=== PATIENT | female | born 1975 | race Caucasian/White ===

== ENCOUNTER 2018-10-25 17:08 | Observation (INO) ==
[2018-10-25] MEDS ORDERED: ASPIRIN PO ONE (17:29)
[2018-10-25] MEDS ORDERED: NITROGLYCERIN TOP ONE (17:30)
--- NOTE | 2018-10-25 17:43 | Diag Imaging Result Doc PS360 ---
EXAM: CHEST-2 VIEWS 10/25/2018 HISTORY: sob TECHNIQUE: PA and lateral chest COMMENT: There are sternotomy wires. There is no evidence of acute cardiac or pulmonary disease. Compared to the previous study of 08/25/2017 there has been no significant change. IMPRESSION: No evidence of acute disease. Electronically signed by Mani Mccray 10/25/2018 5:41 PM
[2018-10-25 17:48] LABS: BASO# 0.02 X1000 (0.0-0.2); BASO% 0.2 % (0.0-0.8); EOS# 0.14 X1000 (0.0-0.7); EOS% 1.3 % (0.0-10.0); HEMATOCRIT 41.7 % (37.0-47.0); HEMOGLOBIN 13.2 g/dL (12.0-16.0); IMM GRAN# 0.06 X1000 (0.0-0.04); IMM GRAN% 0.6 % (0.0-0.5); LYMPH# 1.26 X1000 (1.2-3.4); MCH 28.1 PG (27-31); MCHC 31.7 g/dL (33-37); MCV 88.7 FL (81-99); MONO# 0.39 X1000 (0.11-0.59); MONO% 3.7 % (1.7-9.3); MPV 11.9 FL (7.4-10.4); NEUT# 8.61 X1000 (1.4-6.5); NEUT% 82.2 % (42.2-75.2); PLT 234 X1000 (130-400); RDW 14.7 % (11.5-14.5); WBC 10.48 X1000 (4.8-10.8)
[2018-10-25 17:54] LABS: INR 0.98; PROTIME 13.5 Seconds (11.0-16.0)
[2018-10-25 17:55] LABS: PTT 28.7 Seconds (22.3-41.8)
[2018-10-25 17:56] LABS: AGAP 10; ALBUMIN 3.4 g/dL (3.5-5.0); ALKALINE PHOSPHATASE 96 U/L (32-104); BUN 7 mg/dL (8-22); CALCIUM 8.5 mg/dL (8.8-10.2); CHLORIDE 99 mmol/L (98-107); CK PROFILE 90 U/L (24-173); COSMO 280; CREATININE 0.8 mg/dL (0.5-0.9); ESTIMATED GFR > 60; GLUCOSE 173 mg/dL (70-104); GOT 16 U/L (10-30); GPT 14 U/L (10-36); POTASSIUM 3.9 mmol/L (3.5-5.1); SODIUM 139 mmol/L (136-145); TCO2 30 mmol/L (25-35); TOTAL PROTEIN 6.4 g/dL (6.3-8.3)
--- NOTE | 2018-10-25 17:57 | EKG Report ---
Test Performed on : 10/25/2018 5:24:10 PM Test Reason : sob Blood Pressure : / mmHG Vent. Rate : 089 BPM Atrial Rate : 089 BPM P-R Int : 166 ms QRS Dur : 094 ms QT Int : 360 ms P-R-T Axes : 061 084 019 degrees QTc Int : 438 ms Normal sinus rhythm. Nonspecific ST and T wave abnormality Abnormal ECG No previous ECGs available Unconfirmed Result
--- NOTE | 2018-10-25 19:09 | Diag Imaging Result Doc PS360 ---
EXAM: CT ANGIOGRM PULMONARY ARTERIES 10/25/2018 HISTORY: cp, hypoxemia TECHNIQUE: This exam was performed using automated exposure control, adjustment of mA or kV according to patient size, and/or use of iterative reconstruction technique. COMMENT: 3-D MIPS were performed. There are no previous studies available for comparison. There are no filling defects in the pulmonary arteries. The left ventricle and left atrium are enlarged. The aorta is not distended and there is no evidence of dissection. There is no evidence of significant adenopathy. There is some atelectasis in both posterior costophrenic sulci particularly of the right lower lobe. There is also platelike atelectasis in the inferior lingula and right middle lobe. There is no evidence of acute bony abnormality. IMPRESSION: No evidence of pulmonary emboli. Minimal basilar atelectasis. Electronically signed by Mani Mccray 10/25/2018 7:07 PM
[2018-10-25] MEDS ORDERED: APRESOLINE IV PRN (22:35)
[2018-10-25] MEDS ORDERED: CATAPRES PO ONE (22:35)
[2018-10-25] MEDS ORDERED: FLU VACCINE IM ONE (23:05)
[2018-10-26] MEDS: TYLENOL PO PRN ×2 (06:02→22:03)
[2018-10-26] MEDS: ZOFRAN IV PRN ×2 (06:02→11:03)
[2018-10-26] MEDS ORDERED: BREO ELLIPTA 100/25 MCG INH INH ONE (09:45)
[2018-10-26] MEDS ORDERED: TYLENOL WITH CODEINE #3 PO PRN (10:21)
[2018-10-26] MEDS: COREG PO SCH ×2 (10:58→22:00)
--- NOTE | 2018-10-26 10:59 | HISTORY AND PHYSICAL ---
PRIMARY CARE PHYSICIAN: Dr. Hopkins. CHIEF COMPLAINT: Shortness of breath and chest pain that was substernal and an O2 saturation on room air of 88%. HISTORY OF PRESENTING ILLNESS: This is a 43-year-old female who presents to [facility] ER with complaints of shortness of breath, an O2 saturation on room air of 88% at home, and substernal sharp chest pain and pressure that radiated to her neck. Workup showed a blood pressure on arrival of 212/119. Cardiac enzymes x4 sets have been negative. We did a pulmonary arteriogram that showed no evidence of pulmonary emboli and minimal basilar atelectasis. So she was admitted for further evaluation and treatment. PAST MEDICAL HISTORY: Hypertension and ADHD. PAST SURGICAL HISTORY: Cholecystectomy and a hernia repair. FAMILY HISTORY: Coronary artery disease. SOCIAL HISTORY: She currently lives with family. Denied any tobacco, alcohol, or illicit drug use. ALLERGIES: Cat dander and grass pollen. HOME MEDICATIONS: We are going to hold her Adderall 30 mg daily at 7 a.m. and lunch and we will hold her tramadol 50 mg p.o. q.6 hours p.r.n. We will continue her Tylenol with Codeine #4 one p.o. q.4-6 hours p.r.n. and her Coreg 25 mg p.o. b.i.d. LABORATORY DATA: Showed a white blood cell count of 10.48, hemoglobin 13.2, hematocrit 41.7, platelets 234,000. PT and INR of 13.5 and 0.98. Sodium of 139, potassium 3.9, chloride 99, CO2 30, BUN of 7, creatinine 0.8, glucose 173. Cardiac enzymes x4 sets have been negative. ProBNP of 318. Pulmonary arteriogram showed no evidence of pulmonary emboli and minimal basilar atelectasis. Chest x-ray showed no evidence of acute disease. EKG showed normal sinus rhythm at 89. REVIEW OF SYSTEMS: She denied any fever, chills, blurred vision, dizziness. She did have some substernal chest pain, shortness of breath. Denied any abdominal pain, constipation, diarrhea, burning or hurting with urination. PHYSICAL EXAMINATION: VITAL SIGNS: On arrival, she had a temperature of 97.6 degrees, pulse 91, respirations 20, blood pressure 212/119, saturating 94% on room air. Currently blood pressure is down to 185/86. GENERAL: This is a 43-year-old female who is sitting up in the bed. She is noted to be morbidly obese, weighing 411 pounds with a BMI of 52. HEENT: Normocephalic, atraumatic. Normal ENT inspection. Oropharynx and nares are clear. Eyes: Pupils are equal, round, and reactive to light and accommodation. Extraocular movements are intact. NECK: Normal inspection. Normal range of motion. LUNGS: Clear to auscultation bilaterally with equal lung expansion and chest wall movement. HEART: With regular rate and rhythm. No murmurs, rubs, or gallops. ABDOMEN: Soft, nontender, nondistended. Bowel sounds are present x4 quadrants. MUSCULOSKELETAL: She has 5/5 strength x4 extremities. Noted some nonpitting bilateral lower extremity edema. NEUROLOGICAL: The cranial nerves 2-12 appear grossly intact. ASSESSMENT: 1. Chest pain. 2. Accelerated hypertension. 3. Shortness of breath. 4. Attention deficit hyperactive disorder, history of. PLAN: She was admitted to the medical unit. Placed on telemetry, O2 per protocol, healthy heart diet. We gave her some hydralazine 10 mg IV q.6 p.r.n. for a systolic greater than 180, diastolic greater than 100. Continue her home medications. She has essentially been ruled out for any heart with 4 negative enzymes. So, further orders after being seen by attending. Dictated by MAI Chiang for Naman Yang MD cc: MAI Chiang MD Don Beach, MD
[2018-10-26] MEDS ORDERED: FIORICET PO ONE (12:34)
[2018-10-26] MEDS: LASIX PO SCH (12:49)
--- NOTE | 2018-10-26 20:02 | EKG Report ---
Test Performed on : 10/25/2018 7:20:53 PM Test Reason : cp Blood Pressure : / mmHG Vent. Rate : 079 BPM Atrial Rate : 079 BPM P-R Int : 164 ms QRS Dur : 094 ms QT Int : 428 ms P-R-T Axes : 059 086 052 degrees QTc Int : 490 ms Normal sinus rhythm. Low voltage QRS Nonspecific ST and T wave abnormality Abnormal ECG When compared with ECG of 25-OCT-2018 17:24, (Unconfirmed) No significant change was found Unconfirmed Result
--- NOTE | 2018-10-26 20:10 | HISTORY AND PHYSICAL ---
ADDENDUM: The patient came in with chest pain and shortness of breath. She is 43, history of hypertension, reported history of CHF. She has family history of heart disease. She reports kind of crushing pain starting last night. Her workup has been negative. She has had serial cardiac enzymes which were negative. Her EKG showed normal sinus rhythm with no significant ST changes. The patient will be monitored and we will continue to see, any case she reports history of CHF. We will continue diuretics. There is no evidence of overload at least based on her laboratory data. Her proBNP was mildly elevated. She does have a generous heart but she is 411 pounds. I am pretty sure she exceeds the weight limit for stress test here. We will get an echocardiogram and possibly Cardiology opinion. If she is clear she can go home and pursue either dobutamine stress echocardiogram or outpatient stress test. This is a [id number] encounter note with Batsheva Oliver. cc: Naman Yang MD
--- NOTE | 2018-10-27 00:48 | PROVIDER DOCUMENTATION ---
This chart was entered by Hollie Ludwig Scribe, acting as scribe for Galo Covington PA. HPI-Respiratory General - General Chief Complaint: Shortness of Breath Stated Complaint: FLU SYMPTOMS Time Seen by Provider: 10/25/18 17:22 Source: patient Allergies/Adverse Reactions: Patient Allergies Allergy/AdvReac Type Severity Reaction Status Date / Time cat dander Allergy SWELLING Verified 10/25/18 23:05 grass pollen Allergy SWELLING Verified 10/25/18 23:05 Home Medications: Home Medication List Medication Instructions Recorded Confirmed Last Taken Type Dextroamphetamine/Amphetamine 30 mg PO DAILY@0700 07/20/16 10/26/18 Unknown History [Adderall 30 mg Tablet] Acetaminophen with Codeine 1 each PO Q4-6H PRN PRN 08/25/17 10/26/18 Unknown History [Tylenol with Codeine #4 Tablet] Carvedilol [Coreg] 25 mg PO BID 08/25/17 10/26/18 08/25/17 10:00 History Dextroamphetamine/Amphetamine 30 mg PO WLUNCH 08/25/17 10/26/18 Unknown History [Adderall 30 mg Tablet] Tramadol HCl 50 mg PO Q6HR PRN 08/25/17 10/26/18 Unknown History - History of Present Illness-Resp Nature of Presenting Problem: 43 y/o female presents to ED with SOB and chest pain onset this morning. Pt has O2 sat of 88% in room. Pt is alert and oriented. Quality of Pain: reports: sharp Severity in ED: reports: moderate Onset/Duration: reports: this morning Timing: reports: still present Context: reports: other Exposure: reports: unknown cause Cough Quality/Degree: reports: no cough Episode Frequency: no prior episodes Current Respiratory Medication Therapy: Initiated see nurses note Modifying Factors: improves with: nothing Associated Symptoms: reports: chest pain/soreness, shortness of breath, short of breath Similar Symptoms Previously?: No Recently seen or treated by another doctor?: No Review of Systems - Adult - REVIEW OF SYSTEMS - ADULT Constitutional: denies: chills, fever Eyes: reports: no symptoms reported Ears, Nose, Mouth & Throat: reports: no symptoms reported Cardiovascular: reports: chest pain. denies: palpitations Respiratory: reports: shortness of breath. denies: cough Gastrointestinal: denies: abdominal pain, diarrhea, nausea, vomiting Genitourinary: reports: no symptoms reported Musculoskeletal: denies: back pain, joint pain Integumentary: reports: no symptoms reported Neurological: denies: dizziness/vertigo, seizure Psychiatric: reports: no symptoms reported Endocrine: reports: no symptoms reported Hematologic/Lymphatic: reports: no symptoms reported Allergic/Immunologic: reports: no symptoms reported All Other Systems: Reviewed and Negative Past History - Adult - PAST MEDICAL HISTORY-ADULT Review of Records: reports: Old Records Reviewed, Nursing Assessment Review, Medications Reviewed Major Childhood Illnesses: reports: denies history Cardiovascular: reports: denies history, HTN Respiratory: reports: denies history Gastrointestinal: reports: denies history Obstetrical/Gynecological: reports: denies history Genitourinary: reports: denies history Musculoskeletal: reports: denies history Neurological: reports: denies history Psychiatric: reports: other (ADHD) Endocrine/Immune: reports: denies history Other Conditions: reports: denies history - PRIOR SURGERIES/PROCEDURES Surgical/Procedure History: reports: cholecystectomy, hernia repair - IMMUNIZATION STATUS Childhood Immunizations: See Nurse Assessment Flu Vaccine: See Nurse Assessment - FAMILY HISTORY Family History: reviewed, not pertinent - SOCIAL HISTORY Smoking: non-smoker Substance Use: none/never Alcohol Use Frequency: never Living Situation: family Physical Exam-General - PHYSICAL EXAM-ADULT Initial Vital Signs Reviewed: Yes - CONSTITUTIONAL General Appearance: appears well, alert, no apparent distress - EYES Eyes: PERRL/EOMI, pink conjunctivae - HEAD, EARS, NOSE, MOUTH & THROAT HENMT: normocephalic/atraumatic, moist mucous membranes, normal ENT inspection - NECK Neck: non-tender, full range of motion - RESPIRATORY Respiratory: chest non-tender, lungs clear, normal breath sounds - CARDIOVASCULAR Cardiovascular: normal peripheral pulses, regular rate, rhythm - GASTROINTESTINAL (ABDOMEN) Abdominal Exam: normal bowel sounds, non tender, soft - MUSCULOSKELETAL Back Exam: normal inspection, no CVA tenderness Extremity: normal range of motion, non-tender, normal gait, tenderness ( nonpitting bilateral lower extremity edema) - SKIN Integumentary: normal color, warm/dry - NEUROLOGIC Neurologic: grossly normal - PSYCHIATRIC Psych/Mental Status: normal mood/affect, normal thought content, normal thought process Progress - PLAN OF CARE/RESULTS Progress/Plan/Lab Results: HEART SCORE OF 3. Result Diagrams: 10/25/18 17:30 10/25/18 17:30 - EKG 1 Time of EKG reading by physician:: 17:24 EKG Read and Signed by:: Jose Bonner EKG Interpretation (*Must complete 3 of following elements*): Abnormal Rate: 89 Rhythm: NSR [place]: normal QRS: normal VT Interval: normal ST Wave: non-specific ST changes - XRAY 1 XRAY Study: Chest Impression: Normal (COMMENT: There are sternotomy wires. There is no evidence of acute cardiac or pulmonary disease. Compared to the previous study of 2016 there has been no significant change. IMPRESSION: No evidence of acute disease. Electronically signed by Mani Mccray 10/25/2018 5:41 PM) - CT/MRI 1 Impression: See EMR Report (EXAM: CT ANGIOGRM PULMONARY ARTERIES 10/25/2018 HISTORY: cp, hypoxemia TECHNIQUE: This exam was performed using automated exposure control, adjustment of mA or kV according to patient size, and/or use of iterative reconstruction technique. COMMENT: 3-D MIPS were performed. There are no previous studies available for comparison. There are no filling defects in the pulmonary arteries. The left ventricle and left atrium are enlarged. The aorta is not distended and there is no evidence of dissection. There is no evidence of significant adenopathy. There is some atelectasis in both posterior costophrenic sulci particularly of the right lower lobe. There is also platelike atelectasis in the inferior lingula and right middle lobe. There is no evidence of acute bony abnormality. IMPRESSION: No evidence of pulmonary emboli. Minimal basilar atelectasis.) - CONSULTS/PCP/HOSPITALIST Notification #1 *Consult/PCP/Hospitalist*: Dr. Yang Time Discussed: 20:30 Consult Disposition: Admit Departure - Departure Date of Disposition Decision: 10/25/18 Time of Disposition Decision: 20:31 DIAGNOSIS: Hypoxemia, Family history of early CAD Chest pain Qualifiers: Chest pain type: unspecified Qualified Code(s): R07.9 - Chest pain, unspecified Disposition: ADMITTED INPATIENT 09 Certified Medical Emergency: Emergent Condition: Stable - Critical Care Note This patient required my direct & personal management of CC.: No Attestation - Physician/ HERMANN Attestation Patient care was provided by Advanced Practice Provider:: Yes Advanced Practice Provider:: Galo Covington Advanced Practice Provider documentation review:: The Mid-level provider documentation, treatment plan and medical decision making was reviewed by the physician who agrees with all treatment and medical decision making by the MLP. The physician spent face to face time with patient:: No Advanced Practice Provider documentation review:: Supervising physician onsite and consulted in the evaluation and care of this patient. The physician did not have a face to face encounter with the patient. This chart was documented by the indicated scribe, (Hollie Ludwig Scribe) and accurately reflects the services I performed and decisions made by , Galo Covington, PA, as attested by the provider's signature.
[2018-10-27 06:43] LABS: BASO# 0.02 X1000 (0.0-0.2); BASO% 0.2 % (0.0-0.8); EOS# 0.18 X1000 (0.0-0.7); EOS% 1.8 % (0.0-10.0); HEMATOCRIT 41.1 % (37.0-47.0); HEMOGLOBIN 12.1 g/dL (12.0-16.0); LYMPH# 1.23 X1000 (1.2-3.4); LYMPH% 12.3 % (20.5-51.1); MCH 27.3 PG (27-31); MCHC 29.4 g/dL (33-37); MCV 92.8 FL (81-99); MONO# 0.55 X1000 (0.11-0.59); MONO% 5.5 % (1.7-9.3); MPV 12.3 FL (7.4-10.4); NEUT# 7.91 X1000 (1.4-6.5); NEUT% 79.2 % (42.2-75.2); PLT 225 X1000 (130-400); RBC 4.43 XMIL (4.2-5.4); RDW 15.2 % (11.5-14.5); WBC 9.99 X1000 (4.8-10.8)
[2018-10-27 06:57] LABS: AGAP 8; BUN 11 mg/dL (8-22); CALCIUM 8.5 mg/dL (8.8-10.2); CHLORIDE 97 mmol/L (98-107); COSMO 276; CREATININE 0.7 mg/dL (0.5-0.9); ESTIMATED GFR > 60; GLUCOSE 148 mg/dL (70-104); POTASSIUM 4.8 mmol/L (3.5-5.1); SODIUM 137 mmol/L (136-145); TCO2 32 mmol/L (25-35)
[2018-10-27] MEDS ORDERED: PRILOSEC PO SCH (07:00)
[2018-10-27] MEDS: COREG PO SCH (08:53)
[2018-10-27] MEDS: TYLENOL PO PRN (08:53)
[2018-10-27] MEDS: LASIX PO SCH (08:54)
[2018-10-27] MEDS ORDERED: ASPIRIN EC PO SCH (09:00)
[2018-10-27 11:48] VITALS: BP 129/74
--- NOTE | 2018-10-27 15:20 | ECHO REPORT ---
ORDER DATE: 10/27/2018 INDICATION: Chest pain, shortness of breath, hypertension. FINDINGS: 1. This study is extremely limited secondary to the patient's body habitus. She weighs 411 pounds. I do not see any obvious pericardial effusion. 2. LV systolic function with Definity echo contrast appears to be normal and at least 55%. The remainder of the study including 2 dimensional evaluation of the valves and Doppler evaluation of the valves is limited and unable to be performed. cc: MD Naman Lnaier MD
--- NOTE | 2018-10-28 01:38 | PROGRESS NOTE ---
DATE: 10/27/2018 SUBJECTIVE: The patient was seen and examined by myself. Full note dictated and discussed with the nurse practitioner. The patient's chest pain has resolved. Blood pressures are improved and therefore we will discharge her home. cc: Deshaun Welch MD
--- NOTE | 2018-10-28 05:33 | DISCHARGE SUMMARY ---
ADMISSION DATE: 10/25/2018 DISCHARGE DATE: 10/27/2018 PRIMARY CARE PHYSICIAN: Truong Hopkins MD. DIAGNOSES: 1. Chest pain. 2. Accelerated hypertension in a known hypertensive patient. 3. Shortness of breath. 4. Attention-deficit disorder. DIAGNOSTICS: Chest x-ray revealed no evidence of acute disease. There are sternotomy wires. No evidence of acute cardiac or pulmonary disease. When compared to 08/25/2017 chest x-ray, there has been no significant change. Pulmonary arteriogram revealed no evidence of pulmonary emboli, minimal basilar atelectasis. HOSPITAL COURSE: Ms. Zacarias presented to the emergency room complaining of shortness of breath and substernal chest pain. She was noted to have a room air saturation of 88% at this time. With a blood pressure of 212/119 on arrival to the emergency room for which she was given aspirin, nitroglycerin, clonidine, and hydralazine, blood pressures did decrease and have been in the 120s to 140s over 60s to 70 range. She ruled out, per EKG and cardiac enzymes. She had no further chest pain with room air sats being 95% to 99%. Echocardiogram was performed. She did continue her Lasix, and were unaware of an I and O, as she opted not to measure her urine for an accurate I and O. DISCHARGE PHYSICAL EXAM: Cardiovascular: Regular rate and rhythm. S1 and S2 appreciated. She does have some bilateral lower extremity edema with peripheral pulses palpable x4 extremities. Pulmonary: Breath sounds are clear, although they are diminished. Chest rises and falls symmetrically with respiration. Gastrointestinal: Abdomen is large, soft, nontender, nondistended with bowel sounds in all 4 quadrants. Neurologic: She is alert and oriented x3. DISCHARGE MEDICATIONS: Lasix 40 mg p.o. daily, aspirin 81 mg p.o. daily, Adderall 30 mg p.o. daily, Coreg 25 mg p.o. b.i.d., Tylenol 650 p.r.n. FOLLOW UP: She is to follow up with her primary care physician, Dr. Hopkins, in the next 1 to 2 weeks, sooner if needed. At this time, she will need a BMP drawn to recheck her potassium. She has been instructed to return to the emergency room or call to be seen sooner for any syncope, dizziness, recurring chest pain, palpitations, temperature greater than 101, shortness of breath, cough, hemoptysis, any nausea, vomiting, diarrhea, black or bloody vomitus or stools, or for any questions or concerns that she may have. She is being discharged home in stable condition with family members. TIME SPENT: This is a greater than 30 minute discharge. Dictated by MAI Collazo for Deshaun Welch MD This chart was documented by, MAI Collazo and accurately reflects the services performed, treatment plan and medical decisions as attested by the providers signature Deshaun Welch MD. cc: MAI Collazo MD Don Beach, MD
== END 2018-10-27 13:20 | disposition home or self-care (01) ==
LOC: P.MEDSURG 17:08 → P.ED 17:08 → SUATTDRO 17:09
PROVIDERS: ATTEND Family Medicine
CPT/HCPCS: 71020; 71046; 71275; 80048; 80053; 82550; 83880; 84484; 85025; 85610; 85730; 93005; 93010; 93306; 94761; 96374; 96375; 96376; 99285; A9270; C8929; G0378; J0360; J2405; Q9957; Q9967